=== PATIENT | male | born 1950 | race Caucasian/White ===

== ENCOUNTER 2019-10-23 10:35 | Outpatient (CLI) | payer MEDICARE, OTHER ==
--- NOTE | 2019-10-23 20:54 | RAD ---
CERVICAL SPINE 5 VIEWS INCLUDING OBLIQUE VIEWS: Date: 10/23/2019 HISTORY: Neck pain for 3 weeks without trauma. FINDINGS: The oblique views in particular are very markedly suboptimal because of positioning. There is also mo tion artifact on the lateral view, lowering the sensitivity of this study. C6, C7, and T1 are mostly obscured on the lateral view. There are very extensive bridging anterior osteophytes from C2 through C5. No significant prevertebral soft tissue swelling. IMPRESSION: 1. Significantly limited exam technically. 2. Very severe bridging disc osteophytosis from C2 through C5. 3. No prevertebral soft tissue swelling. Consider follow-up CT or MRI examination on a nonemergent basis for further assessment. POS: [facility]
== END 2019-10-23 10:36 | disposition home or self-care (01) ==
LOC: MADRAD 10:35
PROVIDERS: ATTEND Physician Assistant
DX: M54.2 Cervicalgia (principal)
CPT/HCPCS: 72050